=== PATIENT | female | born 1980 | race Caucasian/White ===

== ENCOUNTER 2024-12-05 05:52 | Day surgery (SDC) | payer OTHER ==
[2024-12-05] MEDS ORDERED: Epinephrine Preservative Free 1 MG/ML IJ ONE (05:53)
[2024-12-05] MEDS ORDERED: CEFAZOLIN 2 GM/100 ML NaCl 2 GM/100 ML IVPB IV ONE (06:08)
[2024-12-05] MEDS ORDERED: Lactated Ringers 1,000 ML IV ONE (06:08)
[2024-12-05] MEDS: CEFAZOLIN 2 GM/100 ML NaCl 2 GM/100 ML IVPB IV SCH (06:14)
[2024-12-05] MEDS: Lactated Ringers 1,000 ML IV ONE (06:15)
[2024-12-05 06:27] LABS: Hematocrit 39.6 % (34.1-44.9); Hemoglobin 12.8 g/dL (11.2-15.7); Mean Cell Volume 83.7 fL (79.4-94.8); Mean Corpuscular Hemoglobin 27.1 pg (25.6-32.2); Mean Corpuscular Hgb Concent. 32.3 g/dL (32.2-35.5); Mean Platelet Volume 8.9 fL (9.4-12.3); Platelet Count 251 x10^3/uL (182-369); Red Blood Count 4.73 x10^6/uL (3.93-5.22); Red Cell Distribution Width 13.3 % (11.7-14.4); White Blood Count 6.9 x10^3/uL (3.98-10.04)
[2024-12-05] MEDS ORDERED: Epinephrine Preservative Free 1 MG/ML ONE (06:28)
[2024-12-05 06:42] LABS: ALBUMIN 4.3 g/dL (3.5-5.0); BILIRUBIN,TOTAL 0.6 mg/dL (0.2-1.3); Calcium 9.4 mg/dL (8.4-10.2); Creatinine 1 0.81 mg/dL (0.52-1.04); EST GLOMERULAR FILTRATION RATE 92.3 ML/MIN; Potassium 4.3 mmol/L (3.5-5.1)
[2024-12-05] MEDS ORDERED: Zofran 4 MG/2 ML VIAL ONE (07:09)
[2024-12-05] MEDS ORDERED: dexAMETHasone sodium phosphate ONE (07:09)
[2024-12-05] MEDS ORDERED: Xylocaine-Mpf 2% 5 Ml Vial ONE (07:09)
[2024-12-05] MEDS ORDERED: propofoL IV ONE ×2 (07:09→09:43)
[2024-12-05] MEDS ORDERED: SUBLIMAZE 100 MCG/2 ML ONE ×2 (07:10→10:26)
[2024-12-05] MEDS ORDERED: Versed 2 MG/2 ML Injection ONE (07:10)
[2024-12-05] MEDS ORDERED: EXPAREL 133 MG/10 ML VIAL IJ ONE ×2 (07:13)
[2024-12-05] MEDS ORDERED: Marcaine Mpf 0.5% Vial 30 Ml ONE (07:13)
[2024-12-05] MEDS ORDERED: ROCURONIUM BROMIDE IV ONE (07:57)
[2024-12-05] MEDS ORDERED: BRIDION 200MG/2ML IV ONE ×2 (08:17→09:29)
[2024-12-05] MEDS ORDERED: DEXMEDETOMIDINE 80 MCG/20ML-NS IV ONE (08:34)
[2024-12-05] MEDS ORDERED: Sodium Chloride 0.9% 1000 ML 1,000 ML ONE (09:08)
[2024-12-05] MEDS ORDERED: Reglan 10 MG/2 ML ONE (09:22)
--- NOTE | 2024-12-05 09:58 | XRAY ---
Indication: Right ankle arthroscopy with synovectomy, possible osteochondral microfracture, lateral ankle stabilization, and excision of osteophytes. Intraoperative fluoroscopy provided for 3 minute 1 second. Numerous digital spot images and cine images demonstrates instrumentation lateral ankle with 2 lateral malleolus orthopedic K wires. Correlate with intraoperative findings/report.
[2024-12-05] MEDS ORDERED: TORAdol 30 mg Injection ONE (10:26)
[2024-12-05 10:57] VITALS: RESP 18; TEMP 97
[2024-12-05 11:04] VITALS: BP 128/96; PULSE 75; O2SAT 98
--- NOTE | 2024-12-05 15:09 | XRAY ---
Three minutes and 1 second of fluoroscopy was used in surgery for a right ankle arthroscopy with synovectomy, possible osteochondral microfracture, lateral ankle stabilization, and excision of osteophytes.
--- NOTE | 2024-12-06 11:22 | OP ---
SURGERY DATE/TIME: 12/05/2024 [id number] PREOPERATIVE DIAGNOSES: 1) Right ankle joint pain. 2) Chronic ankle instability. 3) Synovitis, right ankle joint. 4) Effusion, right ankle joint. 5) Difficulty with ambulation. 6) Osteophyte of talar neck. POSTOPERATIVE DIAGNOSES: 1) Right ankle joint pain. 2) Chronic ankle instability. 3) Synovitis, right ankle joint. 4) Effusion, right ankle joint. 5) Difficulty with ambulation. 6) Osteophyte of talar neck. PROCEDURES: 1) Ankle arthroscopy with complete synovectomy. 2) Lateral ankle stabilization. 3) Excision of talar osteophyte, talar neck, right ankle. SURGEON: Bruno Ortiz DPM. PULMONOLOGIST INTENSIVIST: ALVINA Poe. HEMOSTASIS: Thigh tourniquet set to 325 mmHg for a total of 50 total tourniquet minutes. ESTIMATED BLOOD LOSS: Approximately 10 mL. MATERIALS: Two 1.54 JuggerKnots with BroadBand for repair, one 2.9 JuggerKnot with BroadBand to a 2.9 Betta Link, 4-0 Monocryl, 3-0 nylon. INDICATIONS: The patient is a very pleasant 44-year-old female who presented to my service after a longstanding history of pain to the right ankle. She had reported a rolling injury of her right ankle in September 2024. She did see Dr. Solo shortly afterwards and received diclofenac, the compounding cream, which did not help. She has been having this issue for a while prior to the injury that happened in September, and she has always rolled her ankle. She described an episode of feeling a popping and catching within her ankle joint where we suspected an osteochondral defect. She did go through a round of physical therapy with [facility], however with no improvement. She sought out our service at [place]. From that standpoint, patient has been made aware of all risks, complications, and benefits of surgical intervention at this time including, but not limited to, infection, hematoma, seroma, possibility of delayed wound healing, non-wound healing, and possible need for further surgical intervention at a later date. No guarantees were provided as to the outcome of surgical intervention. Plenty of time was allowed for the patient to ask questions, which were answered to her apparent satisfaction. It is at this time we decided to proceed. DESCRIPTION OF PROCEDURE AND FINDINGS: Patient was brought into the PACU prior to the procedure and provided a popliteal and saphenous block. See anesthesia report for details. Following this, the patient was brought into the operating room and placed on the operating room table in the supine position. General anesthesia was administered until the patient was adequately sedated. A well-padded thigh tourniquet was applied and tourniquet was set to 325 mmHg. Once this was performed, the right lower extremity was prepped and draped in the typical sterile fashion and lowered onto the surgical field. At this time, attention was directed to the medial malleolus, lateral malleolus, and the palpable dell at the anterior aspect of the ankle joint where landmarks were identified and a skin marker was utilized to identify these landmarks. A stab incision was made utilizing an 18-gauge needle with lactated Ringer's at the anteromedial portal site insufflating the ankle joint. Once this was performed, the 11 blade was utilized to make a stab incision through this site. A curved mini hemostat was then utilized to open the capsule, and then a blunt obturator and trocar were then introduced. The obturator was then removed, and the 4.0 mm camera on a 30-degree lens was then introduced. On initial inspection, there was a significant amount of synovitis to the point where the joint lining was unable to be visualized. There was a combination of crab meat and hemorrhagic synovitis, as well as significant amount of constrictures. Lights were turned off, and under direct visualization of the scope making sure not to damage the superficial peroneal nerve, the 11 blade was utilized to make a stab incision, curved mini was utilized to puncture the capsule, triangulating my position, and then introducing the 3.4 mm Fiordaliza shaver. Once this was performed, the synovectomy portion of the procedure proceeded. There was a significant amount of synovitis covering the tibiotalar articulation anteriorly. When the joint was able to be inspected, there was a significant amount of synovitis, however no obvious osteochondral defects, and the cartilage quality was very poor for a patient her age without significant disease processes affecting this. From that standpoint, the synovitis was cleaned out of the medial and lateral gutters within the syndesmosis and as well as the lateral wall leading to the ATFL. From that standpoint, anterior drawer was taken, demonstrating a +1 positivity; however, the talar tilt was significant on fluoroscopic guidance. Images were saved of this, and decision was made to go ahead and inflate the tourniquet and proceed with the lateral ankle stabilization. Following this, an open arthrotomy, given the amount of synovitis that was identified, was performed from that lateral incision. A 10 blade was utilized to make an incision over the posterior distal tip of the fibula extending to the anterior process of the calcaneus. This was deepened along the fascial planes, being careful not to damage any neurovascular structures along the way. Any neurovascular structures that were encountered were either cauterized or retracted. From that standpoint, once the joint capsule was identified, this was incised resecting the ATFL and the CFL off its proximal footprint. These were reflected off and the internal brace portion with the 2.9 JuggerKnot was performed utilizing the BroadBand into the talar neck, making sure not to violate the tibiotalar or the talocalcaneal joint. Once this was performed, the internal brace was secured with the foot in a dorsiflexed position into the fibula utilizing a 2.9 Betta Link. Splitting the difference between this 2.9 Betta Link were two 1.45 JuggerKnots repairing the ATFL and the CFL ligaments. Following the repair, the osteophyte off the dorsal aspect of the talus was resected utilizing a combination of pituitary rongeur as well as a hand rasp. Ribbon retractor was utilized to protect the neurovascular bundle during this portion of the procedure. Following this, once the lateral ankle stabilization had been completed, stress views were taken demonstrating improvement of the anterior drawer and more importantly the talar tilt. Copious amounts of sterile saline were utilized to flush the surgical site. A 4-0 Monocryl was then utilized to coapt the subcutaneous skin edges in simple interrupted buried-type fashion. A 3-0 nylon was then utilized in a horizontal mattress-type fashion to coapt the skin edges with slight eversion. A dressing consisting of Betadine, Adaptic, 4 x 4, Kerlix, ABD, and a well-padded posterior splint with sugar tong was applied to the patient's right lower extremity with the foot orthogonal relative to the longitudinal axis of the leg. The patient was then reversed from anesthesia and returned to the postoperative anesthesia care unit with vital signs stable and vascular status intact. Patient handled the anesthesia as well as the procedure without significant complication. Postoperative orders as indicated in the patient's discharge chart.
== END 2024-12-05 11:18 | disposition home or self-care (01) ==
LOC: SDC 05:52
PROVIDERS: ATTEND Podiatrist Foot & Ankle Surgery
DX: M65.871 Other synovitis and tenosynovitis, right ankle and foot (principal); M25.571 Pain in right ankle and joints of right foot; M25.371 Other instability, right ankle; M25.471 Effusion, right ankle; R26.2 Difficulty in walking, not elsewhere classified; M25.771 Osteophyte, right ankle
CPT/HCPCS: 27698; 28120; 29898; 36415; 73610; 76000; 76937; 80053; 85027; C1713; J0171; J0666; J0690; J1100; J1885; J2250; J2405; J2704; J3010